=== PATIENT | female | born 1955 | race Caucasian/White ===

== ENCOUNTER 2017-02-13 11:01 | Inpatient (IN) | payer BC ==
[2017-02-03 11:06] LABS: BASOPHILS 0.1 %; BASOPHILS ABSOLUTE 0.01 10/3/uL (0.0-0.16); EOSINOPHILS 2.9 %; HEMATOCRIT 38.7 % (36.0-48.0); HEMOGLOBIN 13.5 g/dL (12.0-16.0); IMMATURE GRANULOCYTES 0.1 %; IMMATURE GRANULOCYTES ABSOLUTE 0.01 10/3/uL (0.0-0.11); LYMPHOCYTES 37.8 %; LYMPHOCYTES ABSOLUTE 2.64 10/3/uL (0.67-4.30); MEAN CORPUS HGB CONC 34.9 g/dL (32.0-36.0); MEAN CORPUSCULAR HEMOGLOB 32.3 pg (26.0-34.0); MEAN CORPUSCULAR VOLUME 92.6 fL (80-100); MEAN PLATELET VOLUME 9.5 fL (9.2-13.0); MONOCYTES 7.2 %; NEUTROPHILS 51.9 %; NEUTROPHILS ABSOLUTE 3.62 10/3/uL (2.02-8.40); PLATELET COUNT 193 10/3/uL (150-400); RBC DISTRIBUTION WIDTH 12.1 % (12.0-16.0); RED CELL COUNT 4.18 10/6/uL (4.0-5.6)
[2017-02-03 11:09] LABS: MANUAL DIFF NO %
[2017-02-03 11:11] LABS: PARTIAL THROMBO TIME 36.3 SEC (22.5-37.2); PROTIME (NOT ORD) 13.4 SEC (12.0-14.5)
[2017-02-03 11:15] LABS: ASCORBIC ACID (UR NOT ORDER) NEG (NEG); BILIRUBIN, URINE NEGATIVE (NEG); KETONE, URINE NEGATIVE (NEG); LEUKOCYTE ESTERASE(NOT OR MOD (NEG); WBC (NOT ORDERED) (RFLEX) 170 (0-5)
[2017-02-03 11:22] LABS: A/G RATIO 1.2 (0.7-1.9); ALBUMIN 3.8 G/DL (3.5-5.0); ALKALINE PHOSPHATASE 80 U/L (45-117); BUN (BLOOD UREA NITROGEN) 13 MG/DL (6-23); CALCIUM, SERUM 9.1 MG/DL (8.5-10.4); CHLORIDE, SERUM 108 MMOL/L (96-112); CO2 (CARBON DIOXIDE) 27 MMOL/L (24-34); CREATININE 0.83 MG/DL (0.55-1.02); GFR AFRICAN AMERICAN 87 ML/MIN (>=60); GFR NON AFRICAN AMERICAN 75 ML/MIN (>=60); GLOBULIN 3.2 G/DL (2.5-4.1); GLUCOSE, SERUM 160 MG/DL (60-99); POTASSIUM, SERUM 4.8 MMOL/L (3.5-5.3); SGOT(AST) 15 U/L (5-40); SGPT(ALT) 21 U/L (5-65); SODIUM, SERUM 141 MMOL/L (135-148); TOTAL BILIRUBIN 0.4 MG/DL (0-1.2)
--- NOTE | ~2017-02-13 | DS ---
Discharge Summary [facility] [address] [facility] [place]. [address] NAME: YELENA GILMAN : 51 STATUS : DIS IN PAT#: [id number] AGE: 61 ADM/REG DATE : 02/13/17 MR#: [id number] REPORT SERV DATE: 02/27/17 DICTATED BY: PASTOR DOMINGUEZ III DATE: 02/24/17 REPORT STATUS : Draft TRANSCRIBED BY: ELIA DATE: 02/24/17 Data Collection from hospitalization DISCHARGE DIAGNOSES: 1. Advanced osteoarthritis of the right knee. 2. Diabetes. 3. Hypertension. 4. Hypercholesterolemia. 5. Gastroesophageal reflux disease. 6. Hypothyroidism. CONSULTATIONS: None. PROCEDURES PERFORMED: Right total knee arthroplasty using the [employer] en[employer]une System with size 6 femoral component, size 6 tibial tray, +6 polyethylene insert, and 35 mm patella, posterior stabilized design on 02/13/2017. PATHOLOGY: Bone and soft tissue, right knee joint arthroplasty - degenerative joint disease with eburnation. MEDICATIONS: Eliquis 2.5 mg twice a day, Coreg 3.125 mg twice a day, vitamin D 50,000 units every two weeks as instructed, Zantac 150 mg twice a day, levothyroxine 88 mcg daily, Prinivil 10 mg daily, multivitamins one tablet daily, Starlix 120 mg three times a day, Prilosec 10 mg daily, Zocor 40 mg as instructed, Glucophage 500 mg three times a day with meals, and Percocet 5/325 two tablets every four hours as needed. CONDITION AT DISCHARGE: Stable. DISPOSITION: The patient was discharged to [facility] on an 1800-calorie diabetic diet with activities as instructed. She would follow up with me on 03/02/2017. HOSPITAL COURSE: This is a 61-year-old female who complained of pain in the right knee and had so for several years. It had gotten progressively worse to the point where she had difficulty ambulating short distances. She complained of rest pain and night pain, all unrelieved with nonsteroidal anti-inflammatory medications. X-rays had revealed advanced osteoarthritis of the right knee with [id number] deformity in the medial compartment. Treatment options were discussed and it was elected to proceed with surgical intervention. She was admitted to the hospital at this time for further evaluation and treatment. Upon admission, she was taken to the operating room where she underwent the above-mentioned procedure. She tolerated this well, and there were no complications. On postop day #1, she was doing well. She was comfortable. She did have some nausea. She continued to progress. Discharge planning was performed. She was evaluated by Occupational and Physical Therapy. On 02/16/2017, she was comfortable. She continued to do well. Discharge instructions were given. Due to her improved and stable condition, she was discharged to [facility] with the above-stated instructions. Information collected by: Jeaneth Reed Discharge Summary [address] [address] NAME: YELENA GILMAN : 51 STATUS : DIS IN PAT#: [id number] AGE: 61 ADM/REG DATE : 02/13/17 MR#: [id number] REPORT SERV DATE: 02/27/17 DICTATED BY: PASTOR DOMINGUEZ III DATE: 02/24/17 REPORT STATUS : Draft TRANSCRIBED BY: ELIA DATE: 02/24/17 I submit the above information as my discharge summary. TG/ELIA Pastor Dominguez III, M.D. / [id number] CC: Ame Guadalupe III, M.D. [facility]
--- NOTE | ~2017-02-13 | HP ---
History And Physical [address] [place]. [address] NAME: YELENA GILMAN : 51 STATUS : ADM IN [facility]#: [id number] AGE: 61 ADM/REG DATE : 02/13/17 MR#: [id number] REPORT SERV DATE: 02/13/17 DICTATED BY: PASTOR DOMINGUEZ III DATE: 02/13/17 REPORT STATUS : Draft TRANSCRIBED BY: MODCheikh DATE: 02/13/17 DATE OF ADMISSION: 02/13/2017 CHIEF COMPLAINT: Right knee pain. HISTORY: The patient is a 61-year-old white female, who complains of pain in her right knee and has so for several years. It has gotten progressively worse in the last there years to the point where she is having difficulty ambulating short distances. Complained of rest pain and night pain, all unrelieved with nonsteroidal antiinflammatory medicines. She has had several cortisone injections and given multiple anti-inflammatories all with minimal results. She can only walk about three or four blocks a day. Describes her pain on a 0 to 10 scale as an 8 or 9. X-rays reveal advanced osteoarthritis of her right knee with bone-on bone deformity in medial compartment, and she is admitted for a right total knee arthroplasty. Risks, benefits, and expected outcomes have been explained, but not limited to blood clots, infection, neurovascular injuries, patella maltracking problems, and component failures. PAST MEDICAL HISTORY: Significant for diabetes. Otherwise, she denies any high blood pressure, liver, lung, or kidney problems. She does have high blood pressure, PREVIOUS SURGERIES: Include appendectomy and tonsillectomy. MEDICATIONS: Include aspirin, lisinopril, and metformin. ALLERGIES: INCLUDE PENICILLIN, CODEINE, AND DEMEROL. SOCIAL HISTORY: Nonsmoker and nondrinker. REVIEW OF SYSTEMS: Noncontributory. PHYSICAL EXAMINATION: GENERAL: She is alert and oriented x3. VITAL SIGNS: Stable. HEENT: Normocephalic and atraumatic. Pupils are equal, round, and reactive to light and accommodation. Extraocular muscles are intact. NECK: Supple. CHEST: Clear. HEART: Regular rate and rhythm without murmur. ABDOMEN: Benign, soft, and nontender. Positive bowel sounds. ORTHOPEDIC: Examination reveals marked tenderness to her right knee. She has 2+ valgus stress, 1+ varus stress. Lacks 20 degrees terminal extension and limited flexion to 125. Nontender to the patellofemoral joint. Crepitation to range of motion. Tenderness to the medial joint line and medial femoral condyle. IMAGING: X-rays reveal advanced osteoarthritis of the right knee with [id number]-my-[id number] deformity History And Physical [address] [place]. [address] NAME: YELENA GILMAN : 51 STATUS : ADM IN [facility]#: [id number] AGE: 61 ADM/REG DATE : 02/13/17 MR#: [id number] REPORT SERV DATE: 02/13/17 DICTATED BY: PASTOR DOMINGUEZ III DATE: 02/13/17 REPORT STATUS : Draft TRANSCRIBED BY: ELIA DATE: 02/13/17 in medial compartment. PLANS: Admission for right total knee arthroplasty. TB/ELIA Pastor Dominguez III, M.D. / [id number] CC: Pastor Dominguez III, M.D.
--- NOTE | ~2017-02-13 | OP ---
Record Of Operation [facility] [address] [place]. [address] NAME: YELENA GILMAN : 51 STATUS : ADM IN PAT#: [id number] AGE: 61 ADM/REG DATE : 02/13/17 MR#: [id number] REPORT SERV DATE: 02/13/17 DICTATED BY: PASTOR DOMINGUEZ III DATE: 02/13/17 REPORT STATUS : Draft TRANSCRIBED BY: MODL DATE: 02/13/17 DATE OF PROCEDURE: 02/13/2017 PREOPERATIVE DIAGNOSIS: Advanced osteoarthritis of right knee. POSTOP DIAGNOSIS: Advanced osteoarthritis of right knee. SURGICAL PROCEDURE PERFORMED: Right total knee arthroplasty using the [employer] System with size 6 femoral component, size 6 tibial tray, a +6 polyethylene insert, and a 35 mm patella, posterior stabilized design. MOTOR AND GENERATOR ASSEMBLER: Dalton Gentile. ANESTHESIA: General. ANTIBIOTICS: Ancef 2 g, tranexamic acid 2 g. CRYSTALLOID: 500 mL. ESTIMATED BLOOD LOSS: 50 mL. DRAINS: None. TOURNIQUET TIME: 41 minutes. PROCEDURE IN DETAIL: The patient was brought to the operative room and placed on the table in supine position and general anesthesia was induced. 2 g of Ancef was administered intravenously in the operating room. Pneumatic tourniquet was applied to right upper thigh and the right lower extremity was prepped and draped in the usual sterile fashion and it was exsanguinated with a 6-inch Esmarch and the tourniquet was inflated to 350 mmHg. This was all done after the surgical time-out by the circulating OR nurse. At this point, a straight midline incision was made directly over the right knee followed by medial arthrotomy. The patella was everted and the knee was flexed to 90 degrees. Medial and lateral menisci were debrided along the anterior cruciate ligament. A 5 mm step drill was used to enter the femoral canal and the intramedullary guide was placed on 5 degrees of valgus for right knee. This was pinned to the distal femur and the intramedullary guide was removed. Distal femoral cut was made with an oscillating saw removing 10 mm of distal femur secondary to a preoperative flexion contracture. The distal femur was trialed to a size 6 femoral component, marked along the epicondylar axis. Multi-cutting guide was placed in these colvin, pinned to the distal femur, and the anterior and posterior cuts were made along with the angled chamfer cuts. The intercondylar cutting guide was next centered and pinned to the distal femur. A reciprocating saw was used to make this cut for the posterior stabilized system. Trial reduction was carried out noting good cuts in all planes. Attention was turned toward the tibial side. The external tibial cutting guide was aligned with the second metatarsal ray and pinned to the proximal tibia. Oscillating saw was used Record Of Operation [address] [place]. [address] NAME: YELENA GILMAN : 51 STATUS : ADM IN PAT#: [id number] AGE: 61 ADM/REG DATE : 02/13/17 MR#: [id number] REPORT SERV DATE: 02/13/17 DICTATED BY: PASTOR DOMINGUEZ III DATE: 02/13/17 REPORT STATUS : Draft TRANSCRIBED BY: ELIA DATE: 02/13/17 to make this cut with a neutral degree cutting block. Trial reduction was carried out with a size 6 tibial tray and +6 polyethylene insert. Full extension was achieved. Nice flexion to 130 degrees. Flexion and extension gaps were symmetrical. The undersurface of the patella was then prepared by transecting 9 to 10 mm of bone. A 35 mm patellar template was used to place three anchor holes in the undersurface of the patella. The tibia was then prepared with a drill and a punch. Two packs of methylmethacrylate were vacuum mixed, pressurized in the good dry cancellous bone. The real components were placed. Excess cement was removed. The deep tissues and superficial tissues were injected with 90 mL of Marcaine solution for postoperative pain control. Tourniquet was released after 41 minutes. Bleeding was controlled with the Bovie electrocautery. Thorough irrigation was carried out throughout the procedure with pulse lavage system. The real size 6 polyethylene insert was locked into the tibial tray. The medial arthrotomy was closed with #2 Ethibond suture and #1 1 Vicryl suture in 90-degree flexed position. Subcutaneous tissue was closed with inverted 2-0 Vicryl and the skin was closed using running 4-0 Monocryl. Benzoin and Steri- Strips were applied followed by a sterile Aquacel dressing. The patient tolerated the procedure well and brought to the recovery room in satisfactory condition. There were no intraoperative, postoperative, or anesthetic complications. All instrument, needle, sponge, and lap counts were correct. TB/MODL Pastor Dominguez III, M.D. / [id number] CC: Pastor Dominguez III, M.D.
[~2017-02-13 11:01] MED LIST: ALPHA LIPOIC50 M1 PO; ASAB PO; B COMPLEX; COREG3 PO; GLUCPH PO; LEVOTHYROXIN88 MCG PO; MULTIVITAMI1 PO; NORV5 PO; ONGLYZA2.5 MG PO; PRANDIN PO; PREND2 PO; PRILOSEC10 MG PO; PRIN5 PO; STARLIX120 PO; VIT B 12; VIT D; VITAMIN B PO; VITD PO; ZANTAC150 MG PO; ZOCOR40 PO; [UNRECOGNIZED DRUG - REMARK]; [UNRECOGNIZED DRUG - REMARK]
[2017-02-14 04:16] LABS: HEMATOCRIT 35.5 % (36.0-48.0); HEMOGLOBIN 12.4 g/dL (12.0-16.0)
[2017-02-15 05:49] LABS: HEMOGLOBIN 11.2 g/dL (12.0-16.0)
[2017-02-15 05:57] LABS: HEMATOCRIT 31.7 % (36.0-48.0)
[2017-02-16 04:25] LABS: HEMATOCRIT 28.9 % (36.0-48.0); HEMOGLOBIN 10.2 g/dL (12.0-16.0)
[2017-04-05] MEDS ORDERED: NORCO1 TA1 (09:56)
== END 2017-02-16 17:44 | DRG 470 ==
LOC: SDC/OF 11:01 → PACU 15:25 → 3JRC 16:18
PROVIDERS: Orthopaedic Surgery
PROC: 3E0T3CZ (ICD-10-PCS; 2017-02-13)
PROC: 0SRC0J9 Replacement of Right Knee Joint with Synthetic Substitute, Cemented, Open Approach (ICD-10-PCS; principal; 2017-02-13 12:30)
DX: M17.11 Unilateral primary osteoarthritis, right knee (principal); I10 Essential (primary) hypertension; E11.9 Type 2 diabetes mellitus without complications; Z79.82 Long term (current) use of aspirin; Z79.899 Other long term (current) drug therapy; Z79.84 Long term (current) use of oral hypoglycemic drugs; Z88.0 Allergy status to penicillin; Z88.5 Allergy status to narcotic agent
CPT/HCPCS: 71020; 80053; 81001; 82962; 85014; 85018; 85025; 85610; 85730; 87077; 87086; 87186; 87641; 88305; 88311; 93005; 97110-GP; 97150-GP; 97161-GP; 97165-GO; 97535-GO; A9270-GY; C1776; J0690; J1885; J2250; J2270; J2274; J2405; J2710; J2795; J3010